=== PATIENT | female | born 1985 | race Caucasian/White ===

== ENCOUNTER 2017-08-26 22:10 | Inpatient (IN) | payer BC ==
[2017-08-26] MEDS ORDERED: RHO D Immune Globulin (HUMAN)* 300 MCG = 1,500 I.U. INJ IM ONE (23:13)
[2017-08-26] MEDS ORDERED: Witch Hazel PAD* JAR TOPICAL PRN (23:13)
[2017-08-26] MEDS ORDERED: Dibucaine 1% 28.35 GM TUBE PR PRN (23:13)
[2017-08-26] MEDS ORDERED: Acetaminophen TAB* 325 MG PO PRN (23:13)
[2017-08-26] MEDS ORDERED: Glycerin ADULT SUPP PR PRN (23:13)
[2017-08-27] MEDS: Ibuprofen TAB* 600 MG PO PRN ×3 (00:25→14:32)
[2017-08-27 07:32] LABS: Hematocrit 32 % (35-47); Hemoglobin 10.8 g/dl (12.0-16.0); Mean Corpuscular HGB Conc 33 g/dl (31-36); Mean Corpuscular Hemoglobin 26 pg (27-31); Mean Corpuscular Volume 77 fL (80-97); Mean Platelet Volume 10 um3 (7.4-10.4); Red Blood Count 4.17 10^6/ul (4.0-5.4); Red Cell Distribution Width 15 % (10.5-15); White Blood Count 12.8 10^3/ul (3.5-10.8)
[2017-08-27] MEDS: Docusate CAP* 100 MG PO SCH ×2 (08:22→14:32)
[2017-08-27] MEDS ORDERED: Simethicone TAB* 80 MG TAB.CHEW PO SCH (08:30)
[2017-08-27] MEDS ORDERED: Ferrous Gluconate TAB* 324 MG TAB PO SCH (09:00)
[2017-08-28 00:18] VITALS: BP 123/67
[2017-08-28] MEDS: Docusate CAP* 100 MG PO SCH ×2 (06:37→14:22)
[2017-08-28] MEDS: Ibuprofen TAB* 600 MG PO PRN (14:22)
== END 2017-08-28 18:11 | disposition home or self-care (01) | DRG 560 ==
LOC: MCHOBOUT 22:10 → MCHOB 22:37
PROVIDERS: ADMIT Midwife; ATTEND Midwife
PROC: 10E0XZZ Delivery of Products of Conception, External Approach (ICD-10-PCS; principal; 2017-08-26)
PROC: 0HQ9XZZ Repair Perineum Skin, External Approach (ICD-10-PCS; 2017-08-26)
DX: O99.824 Streptococcus B carrier state complicating childbirth (principal); Z37.0 Single live birth; O70.0 First degree perineal laceration during delivery; Z3A.39 39 weeks gestation of pregnancy
CPT/HCPCS: 36415; 85025; A9270-GY

== ENCOUNTER 2019-06-28 10:28 | Inpatient (IN) | payer BC ==
[2019-06-28] MEDS ORDERED: Buffered Lidocaine 1% SYRIN* 1 ML/SYRINGE INTRADERM ONE (10:48)
[2019-06-28] MEDS ORDERED: Lactated Ringers 1000 ML Bag* 1,000 ML IV ONE (10:48)
--- NOTE | 2019-06-28 10:58 | HP ---
General Information - Reason for Visit IUP at 38-03/04 in labor - General Information Maternal Age: 33 Grav: 3 Para: 2 SAB: 0 IEA: 0 Estimated Due Date: 07/07/19 Determined By: LMP Gestational Age in Weeks/Days: 38-03/04 Maternal Blood Type and Rh: O Negative - Results this Serology/RPR Result: Non-Reactive Rubella Result: Immune HBsAg Result: Negative HIV Result: Negative GBS Culture Result: Positive Past Medical History Delivery History: Hx Uncomplicated Vaginal Delivery Delivery History Comment: 05/2015 6lb 15oz boy. Delivered at [facility] with Bryan Jett CNM 07/2017 8lb 13oz boy. Delivered at [facility] with Grayson Hobbs CNM Pertinent Past Medical History: See Records Past Medical History Comment: Left inguinal hernia Migraine Anxiety Pertinent Past Surgical History: See Records Past Surgical History Comment: 1993 Myringotomy 2006 Rhinoplasty (correct a deviated septum) 2015 Breast biopsy R breast (lactational adenoma) Pertinent Family History: See Records Family History Comment: Father: hypercholesterolemia Mother: RA, thyroid disease Sister: hypercholesterolemia PGM: , fall PGF: , [place] MGM: , Leukemia - Antepartal Records Antepartal Records: Reviewed, Uncomplicated - Rh negative. GBS + Review of Systems Constitutional: Uncomfortable - with UCs CV Complaint: No Respiratory: Shortness of Breath: No Gastrointestinal: No Nausea/Vomiting, Normal Bowel Movement Genitourinary: No Dysuria, No Bleeding, No Leaking Fluid Musculoskeletal: Contractions Neurological: No Headache, No Visual Changes Movement: Normal Exam Allergies/Adverse Reactions: Allergies Environmental Allergies Allergy (Uncoded 08/27/17 00:01) Congestion T 98.1 HR 82 BP 121/82 RR 20 SpO2 99% on RA - Measurements Height: 5 ft 5.5 in Weight: 144 lb Body Mass Index (BMI): 23.6 Pre- Weight: 115 lb - Exam Breast: Breast Exam Deferred CVA: No CVA Tenderness Extremities: No Edema Heart: Normal Rhythm/Heart Sounds HEENT: No Significant Findings Lungs: Clear Bilaterally Rectal: Rectal Exam Deferred Reflexes: DTR 2+ Thyroid: No Thyromegaly - Abdominal Exam Abdomen Exam: Non-Tender - Ultrasound/Biophysical Profile Ultrasound Status: Not Done Targeted Exam Findings See L&D Outpatient Visit Provider Note for Findings: N/A Estimated Weight: 8lbs by Anny Cervical Exam: 4cm Effacement: 80% Station: -1 Presenting Part: Vertex Membrane Status: Intact Sterile Speculum Exam: Not done Bleeding/Discharge: None EFM Findings - External Monitor Findings Baseline Heart Rate: 130 External Monitor Findings: Accelerations Present, No Pattern of Variable or Late Decelerations, Variability Moderate, Baseline Stable External Monitor Findings Comment: No evidence of metabolic acidemia Contractions: Regular, Moderate Contraction Frequency: q 5 min Assessment/Plan - Assessment IUP at 38-5/7 in labor No evidence of metabolic acidemia GBS + - Obstetrical Risk Factors Obstetrical Risk Factors: GBS Positive - Plan Plan: Admit - Anticipate Vaginal Delivery Plan Comment: PARQ GBS prophylaxis with IV penicillin. Pt and FOB agree. Hoping for minimal intervention in labor. Will request pain relief PRN. Admit. Anticipate - Date/Time of Admission Date of Admission: 06/28/19 Time of Admission: 11:00
[2019-06-28 11:00] LABS: ABS Eosinophils 0.1 10^3/ul (0-0.6); ABS Lymphocytes 1.7 10^3/ul (1.0-4.8); ABS Monocytes 0.7 10^3/ul (0-0.8); Eosinophil % 0.6 %; Hematocrit 40 % (35-47); Hemoglobin 14.1 g/dL (12.0-16.0); Lymphocyte % 15.9 %; Mean Corpuscular HGB Conc 35 g/dL (31-36); Mean Corpuscular Hemoglobin 31 pg (27-31); Mean Corpuscular Volume 86 fL (80-97); Mean Platelet Volume 10.9 fL (7.4-10.4); Platelet Count 176 10^3/uL (150-450); Red Blood Count 4.61 10^6 /uL (3.70-4.87); Red Cell Distribution Width 13 % (10-15); White Blood Count 10.5 10^3/uL (3.5-10.8)
[2019-06-28] MEDS ORDERED: Lactated Ringers 1000 ML Bag* 1,000 ML IV SCH ×2 (11:00→14:00)
[2019-06-28] MEDS: Penicillin G Potassium IV* 5,000,000 UNITS in NS 0.9% 100 ML* 100 ML IVPB ONE (11:09)
[2019-06-28 11:21] LABS: Urine Benzodiazepine Screen None Detected (None Detect); Urine Opiates Screen None Detected (None Detect)
--- NOTE | 2019-06-28 13:24 | PN ---
Progress Note - Progress Note Date of Service: 06/28/19 Note: S: Pt out of tub, more uncomfortable. Requests nitrous oxide O: VSS, afebrile FHT 140bpm. Moderate variability. No decels when auscultating through at [facility] q 2-4 min VE deferred A: IUP at 38-4/7 in active labor No evidence of metabolic acidemia P: Nitrous ordered. Anticipated normal progression in labor
[2019-06-28] MEDS ORDERED: Glycerin ADULT SUPP PR PRN (13:46)
[2019-06-28] MEDS ORDERED: Dibucaine 1% 28.35 GM TUBE PR PRN (13:46)
[2019-06-28] MEDS ORDERED: RHO D Immune Globulin (HUMAN)* 300 MCG = 1,500 I.U. INJ IM ONE (13:46)
[2019-06-28] MEDS ORDERED: Witch Hazel PAD* JAR TOPICAL PRN (13:46)
[2019-06-28] MEDS ORDERED: Acetaminophen TAB* 325 MG PO PRN (13:46)
--- NOTE | 2019-06-28 13:53 | PROCNOTE ---
[facility] OB: Delivery Note - Delivery A Date of : 06/28/19 Time of : 13:24 [place] Sex: Male - Name to be determined Score 1 Minute: 8 Score 5 Minutes: 9 Gestational Age in Weeks and Days at Delivery: 38 Weeks and 5 Days Delivery Method: Spontaneous Vaginal Labor: Spontaneous Did Patient attempt ?: N/A, No Previous Amniotic Fluid: Clear Estimated Blood Loss: 400 Anesthesia/Analgesia: Nitrous-Labor Delivered By: Bryan Jett - Nursery Level of Nursery: Regular/Bedside - Perineum Perineal Injury: None/Intact Perineal Repair: None - Events Delivery Events of Note: Partial Course of Antibiotics - One dose of PCN for GBS prophylaxis given 2 hours, 13 min prior to delivery - Additional Delivery Notes Additional Delivery Notes: Pt admitted in labor. GBS prophylaxis started. Normal labor progression led to spontaneous maternal pushing efforts. Pushed x 4 minutes with spontaneous rupture of membranes to clear fluid with . liveborn male. Slow, controlled delivery of head. OA to EILEEN. Shoulders followed easily. Loose nuchal cord x 1 reduced after delivery. vigorous with spontaneous cry. HR> 110bpm. Delivered to maternal abdomen. Cord clamped x 2 and cut by FOB when pulsations ceased. Spontaneous delivery intact placenta. Membranes complete. Moderate clot behind placenta but fundus firm to massage and minimal bleeding noted. Perineum intact. No repair needed as above. EBL 400mL. At time of note mother and in stable condition. Planning to breast feed.
[2019-06-28] MEDS: Docusate CAP* 100 MG PO SCH ×2 (14:00→20:44)
[2019-06-28] MEDS ORDERED: Penicillin G Potassium IV* 2,500,000 UNITS in NS 0.9% 100 ML* 100 ML IVPB SCH (15:00)
[2019-06-28] MEDS ORDERED: Simethicone TAB* 80 MG TAB.CHEW PO SCH (17:30)
[2019-06-28] MEDS: Ibuprofen TAB* 600 MG PO SCH ×2 (17:52→23:56)
[2019-06-29 05:58] LABS: ABS Basophils 0.1 10^3/ul (0-0.2); ABS Eosinophils 0.2 10^3/ul (0-0.6); ABS Monocytes 0.9 10^3/ul (0-0.8); ABS Neutrophils 8.8 10^3/ul (1.5-7.7); Eosinophil % 1.4 %; Hematocrit 38 % (35-47); Lymphocyte % 16.8 %; Mean Corpuscular HGB Conc 34 g/dL (31-36); Mean Corpuscular Hemoglobin 30 pg (27-31); Mean Corpuscular Volume 87 fL (80-97); Mean Platelet Volume 10.6 fL (7.4-10.4); Nucleated Red Blood Cells % 0.1; Platelet Count 169 10^3/uL (150-450); Red Blood Count 4.37 10^6 /uL (3.70-4.87); Red Cell Distribution Width 13 % (10-15); White Blood Count 11.9 10^3/uL (3.5-10.8)
[2019-06-29] MEDS: Ibuprofen TAB* 600 MG PO SCH ×2 (07:27→21:48)
[2019-06-29] MEDS: Docusate CAP* 100 MG PO SCH ×3 (07:27→21:48)
[2019-06-29] MEDS ORDERED: Ferrous Gluconate TAB* 324 MG TAB PO SCH (09:00)
[2019-06-30] MEDS: Docusate CAP* 100 MG PO SCH (07:58)
[2019-06-30] MEDS: Ibuprofen TAB* 600 MG PO SCH (07:58)
[2019-06-30 08:17] VITALS: BP 105/67
== END 2019-06-30 12:05 | disposition home or self-care (01) | DRG 560 ==
LOC: MCHOBOUT 10:28 → MCHOB 10:55
PROVIDERS: ADMIT Midwife; ATTEND Midwife
PROC: 10E0XZZ Delivery of Products of Conception, External Approach (ICD-10-PCS; principal; 2019-06-28)
DX: O99.824 Streptococcus B carrier state complicating childbirth (principal); Z37.0 Single live birth; O99.344 Other mental disorders complicating childbirth; F41.9 Anxiety disorder, unspecified; O69.81X0 Labor and delivery complicated by cord around neck, without compression, not applicable or unspecified; Z3A.38 38 weeks gestation of pregnancy
CPT/HCPCS: 36415; 80307; 85025; 86850; 86900; 86901; A9270-GY; J2540